=== PATIENT | male | born 1970 | race Caucasian/White ===

== ENCOUNTER 2017-01-26 11:17 | Inpatient (IN) | payer OTHER ==
[2017-01-26 14:53] VITALS: BMI 29.5
[2017-01-26] MEDS ORDERED: chlordiazePOXIDE HCL 25 MG CAPSULE PO PRN (17:18)
[2017-01-26] MEDS ORDERED: MAGNESIUM HYDROX 2400MG/30ML ORAL SUSPENSION 30 ML CUP PO PRN (17:18)
[2017-01-26] MEDS ORDERED: guaiFENesin/D-METHORPHAN HB 10 ML UNIT-DOSE CUPS PO PRN (17:18)
[2017-01-26] MEDS ORDERED: LOPERAMIDE HCL 2 MG CAPSULE PO PRN (17:18)
[2017-01-26] MEDS ORDERED: P-EPHED 60MG/TRIPROLIDI 2.5MG TABLET PO PRN (17:18)
[2017-01-26] MEDS ORDERED: MAGNESIUM CITRATE 300 ML BOTTLE PO PRN (17:18)
[2017-01-26] MEDS ORDERED: MENTHOL/PHENOL 1 EACH UD MM PRN (17:18)
[2017-01-26] MEDS ORDERED: MAG HYDROX/AL HYDROX/SIMETH 30 ML UNIT-DOSE CUP PO PRN (17:18)
--- NOTE | 2017-01-26 17:18 | HP ---
COWS - Scale Resting Pulse: 0= [place] 80 or Below Sweatin= Chills/Flushing Restless Observation: 1= Difficult to Sit Still Pupil Size: 0= Normal to Room Light Bone or Joint Aches: 2= Severe Diffuse Aches Runny Nose/ Eye Tearin= Runny Nose/Eyes GI Upset > 30mins: 2= Nausea/Diarrhea Tremor Observation: 2= Slight Tremor Visible Yawning Observation: 2= >3x During Session Anxiety or Irritability: 2=Irritable/Anxious Goose Flesh Skin: 0=Smooth Skin COWS Score: 14 CIWA Score - CIWA Score Nausea/Vomitin-Mild Nausea/No Vomiting Muscle Tremors: 4-Moderate,w/Arms Extend Anxiety: 4-Mod. Anxious/Guarded Agitation: 4-Moderately Restless Paroxysmal Sweats: 1-Minimal Palms Moist Orientation: 1-Uncertain about Date Tacttile Disturbances: 0-None Auditory Disturbances: 0-None Visual Disturbances: 0-None Headache: 0-None Present CIWA-Ar Total Score: 15 Admission ROS S - HPI Chief Complaint: withdrawal sx Allergies/Adverse Reactions: Allergies Allergy/AdvReac Type Severity Reaction Status Date / Time No Known Drug Allergies Allergy Verified 01/26/17 16:44 History of Present Illness: 46 years old male with long history of alcohol opiate cocaine nicotine dependence, denies medical issue has depression is admitted to detox Exam Limitations: No Limitations - Ebola screening Have you traveled outside of the country in the last 21 days: No Have you had contact with anyone from an Ebola affected area: No Have you been sick,other than usual withdrawal symptoms: No Do you have a fever: No - Review of Systems Constitutional: Chills, Changes in sleep, Weight Stable EENT: reports: No Symptoms Reported Respiratory: reports: No Symptoms reported Cardiac: reports: No Symptoms Reported GI: reports: Diarrhea, Nausea, Poor Fluid Intake, Indigestion, Abdominal cramping : reports: No Symptoms Reported Musculoskeletal: reports: Back Pain, Joint Pain, Muscle Pain, Neck Pain Integumentary: reports: Change in Color (both inner elbows) Neuro: reports: Tremors Endocrine: reports: No Symptoms Reported Hematology: reports: No Symptoms Reported Psychiatric: reports: Judgement Intact, Depressed Other Systems: Reviewed and Negative Patient History - Patient Medical History Hx Anemia: No Hx Asthma: No Hx Chronic Obstructive Pulmonary Disease (COPD): No Hx Cancer: No Hx Cardiac Disorders: No Hx Congestive Heart Failure: No Hx Hypertension: No Hx Hypercholesterolemia: No Hx Pacemaker: No HX Cerebrovascular Accident: No Hx Seizures: No Hx Dementia: No Hx Diabetes: No Hx Gastrointestinal Disorders: No Hx Liver Disease: No Hx Genitourinary Disorders: No Hx Sexually Transmitted Disorders: No Hx Renal Disease (ESRD): No Hx Thyroid Disease: No Hx Human Immunodeficiency Virus (HIV): No Hx Hepatitis C: No Hx Depression: Yes Hx Suicide Attempt: Yes (41 years old cut right wrist and over dose) Hx Bipolar Disorder: No Hx Schizophrenia: No - Patient Surgical History Past Surgical History: No Hx Neurologic Surgery: No Hx Cataract Extraction: No Hx Cardiac Surgery: No Hx Lung Surgery: No Hx Breast Surgery: No Hx Breast Biopsy: No Hx Abdominal Surgery: No Hx Appendectomy: No Hx Cholecystectomy: No Hx Genitourinary Surgery: No Hx Orthopedic Surgery: No - PPD History Previous Implant?: Yes Documented Results: Negative w/o proof Implanted On Prior R Admission?: No PPD to be Administered?: Yes - Smoking Cessation Smoking history: Current every day smoker Have you smoked in the past 12 months: Yes Aproximately how many cigarettes per day: 20 Cigars Per Day: 0 Hx Chewing Tobacco Use: No Initiated information on smoking cessation: Yes 'Breaking Loose' booklet given: 01/26/17 - Substance & Tx. History Hx Alcohol Use: Yes Hx Substance Use: Yes Substance Use Type: Alcohol, Cocaine, Opiates Hx Substance Use Treatment: Yes - Substances Abused Heroin Route: Injection Frequency: Daily Amount used: 15 bags Age of first use: 24 Date of Last Use: 01/26/17 Alcohol Route: Oral Frequency: Daily Amount used: Vodka 1 pint, Beer 1x6 pack Age of first use: 18 Date of Last Use: 01/25/17 Cocaine Route: Injection Frequency: Daily Amount used: $80 Age of first use: 18 Date of Last Use: 01/25/17 Family Disease History - Family Disease History Family Disease History: Diabetes: Brother, Heart Disease: Father, Mother Admission Physical Exam BHS - Vital Signs Vital Signs: Vital Signs - 24 hr 01/26/17 14:51 Temperature 96.1 F L Pulse Rate 72 Respiratory 20 Rate Blood Pressure 112/62 - Physical General Appearance: Yes: Nourished, Appropriately Dressed, Mild Distress, Tremorous, Irritable, Sweating, Anxious HEENTM: Yes: Hearing grossly Normal, Normal ENT Inspection, Normocephalic, Normal Voice Respiratory: Yes: Chest Non-Tender, Lungs Clear, Normal Breath Sounds, No Respiratory Distress, No Accessory Muscle Use Neck: Yes: Supple, Trachea in good position Breast: Yes: Breasts Symetrical Cardiology: Yes: Regular Rhythm, Regular Rate, S1, S2 Abdominal: Yes: Non Tender, Soft Genitourinary: Yes: Within Normal Limits Back: Yes: Normal Inspection Musculoskeletal: Yes: full range of Motion, Gait Steady, Back pain, Muscle Pain Extremities: Yes: Normal Range of Motion, Non-Tender, Tremors Neurological: Yes: Alert, Motor Strength 5/5, Normal Response, Depressed Affect Integumentary: Yes: Warm, Track Kate Lymphatic: Yes: Within Normal Limits - Diagnostic (1) Alcohol dependence with uncomplicated withdrawal Current Visit: Yes Status: Acute (2) Opioid dependence with withdrawal Current Visit: Yes Status: Acute (3) Cocaine abuse, uncomplicated Current Visit: Yes Status: Chronic (4) Nicotine dependence Current Visit: Yes Status: Acute Qualifiers: Nicotine product type: cigarettes Substance use status: in withdrawal Qualified Code(s): F17.213 - Nicotine dependence, cigarettes, with withdrawal (5) GERD (gastroesophageal reflux disease) Current Visit: Yes Status: Chronic Qualifiers: Esophagitis presence: without esophagitis Qualified Code(s): K21.9 - Gastro-esophageal reflux disease without esophagitis (6) Depression (emotion) Current Visit: Yes Status: Suspected Qualifiers: Depression Type: dysthymia Qualified Code(s): F34.1 - Dysthymic disorder Cleared for Admission [facility] - Detox or Rehab [facility] Level of Care: Medically Managed Detox Regimen/Protocol: Methadone/Librium [facility] Breath Alcohol Content Breath Alcohol Content: 0 Urine Drug Screen - Results Drug Screen Negative: No Urine Drug Screen Results: ALECIA-Cocaine, OPI-Opiates
[2017-01-26] MEDS ORDERED: METHADONE HCL 10 MG TABLET (FOR DETOX USE ONLY) PO ONE ×2 (18:00→23:00)
[2017-01-26 21:39] LABS: URINE APPEARANCE SLCLOUDY; URINE BILIRUBIN NEGATIVE (NEGATIVE); URINE BLOOD NEGATIVE (NEGATIVE); URINE COLOR LTYELLOW; URINE GLUCOSE (UA) NEGATIVE (NEGATIVE); URINE KETONE NEGATIVE (NEGATIVE); URINE LEUK ESTERASE NEGATIVE (NEGATIVE); URINE NITRITE NEGATIVE (NEGATIVE); URINE PROTEIN NEGATIVE (NEGATIVE); URINE UROBILINOGEN NEGATIVE E.U./dl (0.2-1.0)
[2017-01-26] MEDS: THIAMINE HCL 100 MG TABLET (FP) PO SCH (22:10)
[2017-01-26] MEDS: chlordiazePOXIDE HCL 25 MG CAPSULE PO SCH (22:10)
[2017-01-26] MEDS: RANITIDINE HCL 150 MG TABLET (FP) PO SCH (22:11)
[2017-01-27] MEDS: chlordiazePOXIDE HCL 25 MG CAPSULE PO SCH ×4 (05:28→22:20)
--- NOTE | 2017-01-27 09:36 | CONSULT ---
[facility] Psychiatric Consult - Data Date of interview: 01/27/17 Admission source: [facility] Identifying data: This is 46 years old male with no psyuchiatric hospitalization history intoxicated with: Opioids, Cocaine, Alcohol and Nicotine Substance Abuse History: - Smoking Cessation. Smoking history: Current every day smoker. Have you smoked in the past 12 months: Yes. Aproximately how many cigarettes per day: 20. Cigars Per Day: 0. Hx Chewing Tobacco Use: No. Initiated information on smoking cessation: Yes. 'Breaking Loose' booklet given : 01/26/17. - Substance & Tx. History. Hx Alcohol Use: Yes. Hx Substance Use : Yes. Substance Use Type: Alcohol, Cocaine, Opiates. Hx Substance Use Treatment: Yes. - Substances Abused. Heroin. Route: Injection. Frequency : Daily. Amount used: 15 bags. Age of first use: 24. Date of Last Use: . Alcohol. Route: Oral. Frequency: Daily. Amount used: Vodka 1 pint, Beer 1x6 pack. Age of first use: 18. Date of Last Use: 01/25/17. Cocaine. Route: Injection. Frequency: Daily. Amount used: $80. Age of first use: 18. Date of Last Use: 01/25/17 Medical History: GERD Psychiatric History: Patient reports history of Depression, reports taking prior to admission with good response: Trazodone 50po qhs. Seroquel 100mg po qhs. Celexa 20mg poqd Physical/Sexual Abuse/Trauma History: Denies Additional Comment: Trazodone 50po qhs. Seroquel 100mg po qhs. Celexa 20mg poqd Mental Status Exam - Mental Status Exam Alert and Oriented to: Person Cognitive Function: Fair Patient Appearance: Unkempt Mood: Sad Affect: Mood Congruent Patient Behavior: Cooperative Speech Pattern: Appropriate Voice Loudness: Normal Thought Process: Goal Oriented Thought Disorder: Being Controlled Hallucinations: Denies Suicidal Ideation: Denies Homicidal Ideation: Denies Insight/Judgement: Fair Sleep: Difficulty falling asleep Appetite: Fair Muscle strength/Tone: Normal Gait/Station: Shuffling Additional Comments: Trazodone 50po qhs. Seroquel 100mg po qhs. Celexa 20mg poqd Psychiatric Findings - Problem List ([place] 1, 2,3) (1) Alcohol dependence with uncomplicated withdrawal Current Visit: Yes Status: Acute (2) Nicotine dependence Current Visit: Yes Status: Acute Qualifiers: Nicotine product type: cigarettes Substance use status: in withdrawal Qualified Code(s): F17.213 - Nicotine dependence, cigarettes, with withdrawal (3) Opioid dependence with withdrawal Current Visit: Yes Status: Acute (4) Cocaine abuse, uncomplicated Current Visit: Yes Status: Chronic (5) Drug-induced mood disorder Current Visit: Yes Status: Acute - Initial Treatment Plan Initial Treatment Plan: Trazodone 50po qhs. Seroquel 100mg po qhs. Celexa 20mg poqd
[2017-01-27] MEDS ORDERED: METHADONE HCL 10 MG TABLET (FOR DETOX USE ONLY) PO SCH (10:00)
[2017-01-27] MEDS: RANITIDINE HCL 150 MG TABLET (FP) PO SCH ×2 (10:04→22:20)
[2017-01-27] MEDS: NICOTINE 21 MG/24 HOURS TOPICAL PATCH TD SCH (10:04)
[2017-01-27] MEDS: PRENATAL VITAMINS W/ FOLIC ACID TABLET (FP) PO SCH (10:04)
[2017-01-27] MEDS: CITALOPRAM HYDROBROMIDE 20 MG TABLET (FP) PO SCH (10:04)
[2017-01-27 10:15] LABS: MCH 29.6 pg (25.7-33.7); MCHC 33.1 g/dl (32.0-35.9); MEAN CELL VOLUME 89.5 fl (80-96); MEAN PLT VOLUME 10.2 fl (7.5-11.1); PLATELET COUNT 245 K/MM3 (134-434); RDW 13.9 % (11.9-15.9); WHITE BLOOD COUNT 7.3 K/mm3 (4.0-10.0)
[2017-01-27 10:47] LABS: ALBUMIN 3.6 g/dl (3.4-5.0); ALK PHOS 121 U/L (45-117); ANION GAP 9 (8-16); BILIRUBIN,TOTAL 0.8 mg/dL (0.2-1.0); CALCIUM 9.3 mg/dL (8.5-10.1); CO2 28 mmol/L (21-32); COCKROFT - GAULT 118.43; GLUCOSE,RANDOM 99 mg/dL (74-106); SGOT/AST 23 U/L (15-37); SGPT/ALT 27 U/L (12-78); TOT PROT 7.3 g/dl (6.4-8.2)
[2017-01-27 11:15] LABS: HIV 1 & 2 AB NEGATIVE; HIV 1 AGp24 NEGATIVE
--- NOTE | 2017-01-27 11:52 | PN ---
S CIWA - CIWA Score Nausea/Vomitin-Mild Nausea/No Vomiting Muscle Tremors: 4-Moderate,w/Arms Extend Anxiety: 4-Mod. Anxious/Guarded Agitation: 3 Paroxysmal Sweats: 3 Orientation: 0-Oriented Tacttile Disturbances: 0-None Auditory Disturbances: 0-None Visual Disturbances: 0-None Headache: 0-None Present CIWA-Ar Total Score: 15 BHS COWS - Scale Resting Pulse: 0= [place] 80 or Below Sweatin=Flushed/Facial Moisture Restless Observation: 1= Difficult to Sit Still Pupil Size: 0= Normal to Room Light Bone or Joint Aches: 2= Severe Diffuse Aches Runny Nose/ Eye Tearin= Runny Nose/Eyes GI Upset > 30mins: 2= Nausea/Diarrhea Tremor Observation of Outstretched Hands: 2= Slight Tremor Visible Yawning Observation: 1= 1-2x During Session Anxiety or Irritability: 2=Irritable/Anxious Goose Flesh Skin: 0=Smooth Skin COWS Score: 14 S Progress Note (SOAP) Subjective: Anxiety,tremors,sweating,interrupted sleep,restless,muscle aches Objective: 01/27/17 11:51 Vital Signs - 8 hr 01/27/17 01/27/17 06:32 09:14 Temperature 96.2 F L 96.9 F L Pulse Rate 56 L 63 Respiratory 16 18 Rate Blood Pressure 114/79 117/72 Laboratory Tests 01/26/17 01/27/17 01/27/17 21:20 06:00 06:00 WBC 7.3 RBC 4.62 Hgb 13.7 Hct 41.4 MCV 89.5 MCHC 33.1 RDW 13.9 Plt Count 245 MPV 10.2 Sodium Potassium Chloride Carbon Dioxide Anion Gap BUN Creatinine Creat Clearance w eGFR Random Glucose Calcium Total Bilirubin AST ALT Alkaline Phosphatase Total Protein Albumin Urine Color Ltyellow Urine Appearance Slcloudy Urine pH 7.0 Ur Specific [place] 1.019 Urine Protein Negative Urine Glucose (UA) Negative Urine Ketones Negative Urine Blood Negative Urine Nitrite Negative Urine Bilirubin Negative Urine Urobilinogen Negative Ur Leukocyte Esterase Negative RPR Titer HIV 1&2 Antibody Screen Negative HIV P24 Antigen Negative 01/27/17 01/27/17 06:00 06:00 WBC RBC Hgb Hct MCV MCHC RDW Plt Count MPV Sodium 143 Potassium 4.6 Chloride 106 Carbon Dioxide 28 Anion Gap 9 BUN 22 H Creatinine 1.0 Creat Clearance w eGFR > 60 Random Glucose 99 Calcium 9.3 Total Bilirubin 0.8 AST 23 ALT 27 Alkaline Phosphatase 121 H Total Protein 7.3 Albumin 3.6 Urine Color Urine Appearance Urine pH Ur Specific [place] Urine Protein Urine Glucose (UA) Urine Ketones Urine Blood Urine Nitrite Urine Bilirubin Urine Urobilinogen Ur Leukocyte Esterase RPR Titer Nonreactive HIV 1&2 Antibody Screen HIV P24 Antigen labs noted Assessment: 01/27/17 11:51 withdrawal sx. Plan: Continue detox
[2017-01-27] MEDS ORDERED: PNEUMOCOCCAL 23 VACCINE 0.5 ML VIAL IM ONE (12:00)
[2017-01-27] MEDS ORDERED: PNEUMOC 13-VAL CONJ-DIP CRM/PF 0.5 ML DISP.SYRIN IM ONE (12:00)
--- NOTE | 2017-01-27 13:36 | EKG ---
Test Reason : Blood Pressure : / mmHG Vent. Rate : 057 BPM Atrial Rate : 057 BPM P-R Int : 166 ms QRS Dur : 114 ms QT Int : 454 ms P-R-T Axes : 020 002 027 degrees QTc Int : 441 ms SINUS BRADYCARDIA OTHERWISE NORMAL ECG NO PREVIOUS ECGS AVAILABLE Confirmed by MELY AGUAYO, DALE ([id number]) on 01/27/2017 1:35:51 PM Referred By: Dandre Llamas Confirmed By:DALE BOONE MD
[2017-01-27] MEDS: ACETAMINOPHEN 325 MG TABLET (FP) PO PRN ×2 (18:30→23:32)
[2017-01-27] MEDS: THIAMINE HCL 100 MG TABLET (FP) PO SCH (22:20)
[2017-01-27] MEDS: traZODone HCL 50 MG TABLET (FP) PO SCH (22:20)
[2017-01-27] MEDS: QUEtiapine FUMARATE 100 MG TABLET (FP) PO SCH (22:20)
[2017-01-28] MEDS: CYCLOBENZAPRINE HCL 10 MG TABLET (FP) PO PRN ×2 (00:59→10:22)
[2017-01-28] MEDS: diphenhydrAMINE HCL 50 MG CAPSULE PO PRN (01:00)
[2017-01-28] MEDS: ACETAMINOPHEN 325 MG TABLET (FP) PO PRN (03:59)
[2017-01-28] MEDS: chlordiazePOXIDE HCL 25 MG CAPSULE PO SCH ×3 (05:29→17:10)
[2017-01-28] MEDS: CITALOPRAM HYDROBROMIDE 20 MG TABLET (FP) PO SCH (10:20)
[2017-01-28] MEDS: PRENATAL VITAMINS W/ FOLIC ACID TABLET (FP) PO SCH (10:20)
[2017-01-28] MEDS: NICOTINE 21 MG/24 HOURS TOPICAL PATCH TD SCH (10:20)
[2017-01-28] MEDS: RANITIDINE HCL 150 MG TABLET (FP) PO SCH ×2 (10:20→22:19)
[2017-01-28] MEDS: METHADONE HCL 5 MG TABLET (FOR DETOX USE ONLY) PO SCH (10:20)
--- NOTE | 2017-01-28 10:28 | PN ---
[facility] CIWA - CIWA Score Nausea/Vomitin-No Nausea/No Vomiting Muscle Tremors: 4-Moderate,w/Arms Extend Anxiety: 4-Mod. Anxious/Guarded Agitation: 4-Moderately Restless Paroxysmal Sweats: 1-Minimal Palms Moist Orientation: 0-Oriented Tacttile Disturbances: 3-Moderate Itch/Numb/Burn Auditory Disturbances: 0-None Visual Disturbances: 0-None Headache: 0-None Present CIWA-Ar Total Score: 16 S COWS - Scale Resting Pulse: 0= [place] 80 or Below Sweatin= Chills/Flushing Restless Observation: 3= Extraneous Movement Pupil Size: 2= Moderately Dilated Bone or Joint Aches: 4=Acute Joint/Muscle Pain Runny Nose/ Eye Tearin= Nasal Congestion GI Upset > 30mins: 1= Stomach Cramp Tremor Observation of Outstretched Hands: 2= Slight Tremor Visible Yawning Observation: 1= 1-2x During Session Anxiety or Irritability: 2=Irritable/Anxious Goose Flesh Skin: 0=Smooth Skin COWS Score: 17 S Progress Note (SOAP) Subjective: ANXIETY,SWEATS,BODYACHES, INTERMITTENT SLEEP. Objective: 01/28/17 10:27 Vital Signs Temperature 97.0 F L 01/28/17 09:16 Pulse Rate 65 01/28/17 09:16 Respiratory Rate 18 01/28/17 09:16 Blood Pressure 113/71 01/28/17 09:16 O2 Sat by Pulse Oximetry (%) Laboratory Last Values WBC 7.3 K/mm3 (4.0-10.0) 01/27/17 06:00 RBC 4.62 M/mm3 (4.00-5.60) 01/27/17 06:00 Hgb 13.7 GM/dL (11.7-16.9) 01/27/17 06:00 Hct 41.4 % (35.4-49) 01/27/17 06:00 MCV 89.5 fl (80-96) 01/27/17 06:00 MCHC 33.1 g/dl (32.0-35.9) 01/27/17 06:00 RDW 13.9 % (11.9-15.9) 01/27/17 06:00 Plt Count 245 K/MM3 (134-434) 01/27/17 06:00 MPV 10.2 fl (7.5-11.1) 01/27/17 06:00 Sodium 143 mmol/L (136-145) 01/27/17 06:00 Potassium 4.6 mmol/L (3.5-5.1) 01/27/17 06:00 Chloride 106 mmol/L (98-107) 01/27/17 06:00 Carbon Dioxide 28 mmol/L (21-32) 01/27/17 06:00 Anion Gap 9 (8-16) 01/27/17 06:00 BUN 22 mg/dL (7-18) H 01/27/17 06:00 Creatinine 1.0 mg/dL (0.7-1.3) 01/27/17 06:00 Creat Clearance w eGFR > 60 (>60) 01/27/17 06:00 Random Glucose 99 mg/dL (74-106) 01/27/17 06:00 Calcium 9.3 mg/dL (8.5-10.1) 01/27/17 06:00 Total Bilirubin 0.8 mg/dL (0.2-1.0) 01/27/17 06:00 AST 23 U/L (15-37) 01/27/17 06:00 ALT 27 U/L (12-78) 01/27/17 06:00 Alkaline Phosphatase 121 U/L (45-117) H 01/27/17 06:00 Total Protein 7.3 g/dl (6.4-8.2) 01/27/17 06:00 Albumin 3.6 g/dl (3.4-5.0) 01/27/17 06:00 Urine Color Ltyellow 01/26/17 21:20 Urine Appearance Slcloudy 01/26/17 21:20 Urine pH 7.0 (5.0-8.0) 01/26/17 21:20 Ur Specific [place] 1.019 (1.001-1.035) 01/26/17 21:20 Urine Protein Negative (NEGATIVE) 01/26/17 21:20 Urine Glucose (UA) Negative (NEGATIVE) 01/26/17 21:20 Urine Ketones Negative (NEGATIVE) 01/26/17 21:20 Urine Blood Negative (NEGATIVE) 01/26/17 21:20 Urine Nitrite Negative (NEGATIVE) 01/26/17 21:20 Urine Bilirubin Negative (NEGATIVE) 01/26/17 21:20 Urine Urobilinogen Negative E.U./dl (0.2-1.0) 01/26/17 21:20 Ur Leukocyte Esterase Negative (NEGATIVE) 01/26/17 21:20 RPR Titer Nonreactive (NONREACTIVE) 01/27/17 06:00 HIV 1&2 Antibody Screen Negative 01/27/17 06:00 HIV P24 Antigen Negative 01/27/17 06:00 Assessment: 01/28/17 10:27 WITHDRAWAL SX Plan: CONTINUE DETOX
[2017-01-28] MEDS: CYCLOBENZAPRINE HCL 10 MG TABLET (FP) PO SCH ×2 (14:33→22:19)
[2017-01-28] MEDS: chlordiazePOXIDE 5 MG CAPSULE PO SCH (22:18)
[2017-01-28] MEDS: THIAMINE HCL 100 MG TABLET (FP) PO SCH (22:18)
[2017-01-28] MEDS: traZODone HCL 50 MG TABLET (FP) PO SCH (22:19)
[2017-01-28] MEDS: QUEtiapine FUMARATE 100 MG TABLET (FP) PO SCH (22:19)
[2017-01-29] MEDS: CYCLOBENZAPRINE HCL 10 MG TABLET (FP) PO SCH ×3 (05:56→22:11)
[2017-01-29] MEDS: chlordiazePOXIDE 5 MG CAPSULE PO SCH ×3 (05:56→17:16)
[2017-01-29] MEDS: NICOTINE POLACRILEX 4 MG GUM BC PRN ×2 (09:29→20:37)
[2017-01-29] MEDS: CITALOPRAM HYDROBROMIDE 20 MG TABLET (FP) PO SCH (10:10)
[2017-01-29] MEDS: PRENATAL VITAMINS W/ FOLIC ACID TABLET (FP) PO SCH (10:10)
[2017-01-29] MEDS: METHADONE HCL 5 MG TABLET (FOR DETOX USE ONLY) PO SCH (10:10)
[2017-01-29] MEDS: RANITIDINE HCL 150 MG TABLET (FP) PO SCH ×2 (10:10→22:11)
[2017-01-29] MEDS: NICOTINE 21 MG/24 HOURS TOPICAL PATCH TD SCH (10:11)
--- NOTE | 2017-01-29 13:31 | PN ---
S Progress Note (SOAP) Subjective: Tremors, Sweating, Interrupted Sleep, Body aches. Objective: PT. A & O X 3, OBSERVED AMBULATING ON UNIT. 01/29/17 13:29 Vital Signs Temperature 95.6 F L 01/29/17 09:48 Pulse Rate 67 01/29/17 09:48 Respiratory Rate 18 01/29/17 09:48 Blood Pressure 112/66 01/29/17 09:48 O2 Sat by Pulse Oximetry (%) Laboratory Last Values WBC 7.3 K/mm3 (4.0-10.0) 01/27/17 06:00 RBC 4.62 M/mm3 (4.00-5.60) 01/27/17 06:00 Hgb 13.7 GM/dL (11.7-16.9) 01/27/17 06:00 Hct 41.4 % (35.4-49) 01/27/17 06:00 MCV 89.5 fl (80-96) 01/27/17 06:00 MCHC 33.1 g/dl (32.0-35.9) 01/27/17 06:00 RDW 13.9 % (11.9-15.9) 01/27/17 06:00 Plt Count 245 K/MM3 (134-434) 01/27/17 06:00 MPV 10.2 fl (7.5-11.1) 01/27/17 06:00 Sodium 143 mmol/L (136-145) 01/27/17 06:00 Potassium 4.6 mmol/L (3.5-5.1) 01/27/17 06:00 Chloride 106 mmol/L (98-107) 01/27/17 06:00 Carbon Dioxide 28 mmol/L (21-32) 01/27/17 06:00 Anion Gap 9 (8-16) 01/27/17 06:00 BUN 22 mg/dL (7-18) H 01/27/17 06:00 Creatinine 1.0 mg/dL (0.7-1.3) 01/27/17 06:00 Creat Clearance w eGFR > 60 (>60) 01/27/17 06:00 Random Glucose 99 mg/dL (74-106) 01/27/17 06:00 Calcium 9.3 mg/dL (8.5-10.1) 01/27/17 06:00 Total Bilirubin 0.8 mg/dL (0.2-1.0) 01/27/17 06:00 AST 23 U/L (15-37) 01/27/17 06:00 ALT 27 U/L (12-78) 01/27/17 06:00 Alkaline Phosphatase 121 U/L (45-117) H 01/27/17 06:00 Total Protein 7.3 g/dl (6.4-8.2) 01/27/17 06:00 Albumin 3.6 g/dl (3.4-5.0) 01/27/17 06:00 Urine Color Ltyellow 01/26/17 21:20 Urine Appearance Slcloudy 01/26/17 21:20 Urine pH 7.0 (5.0-8.0) 01/26/17 21:20 Ur Specific [place] 1.019 (1.001-1.035) 01/26/17 21:20 Urine Protein Negative (NEGATIVE) 01/26/17 21:20 Urine Glucose (UA) Negative (NEGATIVE) 01/26/17 21:20 Urine Ketones Negative (NEGATIVE) 01/26/17 21:20 Urine Blood Negative (NEGATIVE) 01/26/17 21:20 Urine Nitrite Negative (NEGATIVE) 01/26/17 21:20 Urine Bilirubin Negative (NEGATIVE) 01/26/17 21:20 Urine Urobilinogen Negative E.U./dl (0.2-1.0) 01/26/17 21:20 Ur Leukocyte Esterase Negative (NEGATIVE) 01/26/17 21:20 RPR Titer Nonreactive (NONREACTIVE) 01/27/17 06:00 HIV 1&2 Antibody Screen Negative 01/27/17 06:00 HIV P24 Antigen Negative 01/27/17 06:00 LABS NOTED. Assessment: 01/29/17 13:30 WITHDRAWAL SYMPTOMS. Plan: CONTINUE DETOX. ADVISED PATIENT TO FOLLOW-UP WITH PASSENGER BARGE [facility]STER / REHAB MEDICAL PROVIDER AFTER DISCHARGE FROM DETOX FOR GENERAL MEDICAL ASSESSMENT AND FOR ABNORMAL ADMISSION LAB VALUES.
[2017-01-29] MEDS: traZODone HCL 50 MG TABLET (FP) PO SCH (22:11)
[2017-01-29] MEDS: THIAMINE HCL 100 MG TABLET (FP) PO SCH (22:11)
[2017-01-29] MEDS: QUEtiapine FUMARATE 100 MG TABLET (FP) PO SCH (22:11)
[2017-01-29] MEDS: chlordiazePOXIDE HCL 10 MG CAPSULE PO SCH (22:11)
[2017-01-30] MEDS: diphenhydrAMINE HCL 50 MG CAPSULE PO PRN ×2 (00:48→22:32)
[2017-01-30] MEDS: ACETAMINOPHEN 325 MG TABLET (FP) PO PRN ×2 (00:48→14:50)
[2017-01-30] MEDS: chlordiazePOXIDE HCL 10 MG CAPSULE PO SCH ×3 (05:46→17:15)
[2017-01-30] MEDS: CYCLOBENZAPRINE HCL 10 MG TABLET (FP) PO SCH ×3 (05:46→22:30)
[2017-01-30] MEDS ORDERED: METHADONE HCL 10 MG TABLET (FOR DETOX USE ONLY) PO SCH (10:00)
[2017-01-30] MEDS: NICOTINE 21 MG/24 HOURS TOPICAL PATCH TD SCH (10:13)
[2017-01-30] MEDS: CITALOPRAM HYDROBROMIDE 20 MG TABLET (FP) PO SCH (10:13)
[2017-01-30] MEDS: RANITIDINE HCL 150 MG TABLET (FP) PO SCH ×2 (10:13→22:30)
[2017-01-30] MEDS: PRENATAL VITAMINS W/ FOLIC ACID TABLET (FP) PO SCH (10:13)
[2017-01-30] MEDS ORDERED: BISACODYL 5 MG TABLET.DR (FP) PO ONE (12:46)
--- NOTE | 2017-01-30 12:50 | PN ---
[facility] Progress Note (SOAP) Subjective: Sweating, anxious, interrupted sleep, constipation (hard stool yesterday, no bm today) Objective: 01/30/17 12:48 Last Vital Signs Temp Pulse Resp BP Pulse Ox 95.9 F L 73 18 111/67 01/30/17 09:46 01/30/17 09:46 01/30/17 09:46 01/30/17 09:46 Laboratory Tests 01/26/17 01/27/17 01/27/17 21:20 06:00 06:00 WBC 7.3 RBC 4.62 Hgb 13.7 Hct 41.4 MCV 89.5 MCHC 33.1 RDW 13.9 Plt Count 245 MPV 10.2 Sodium Potassium Chloride Carbon Dioxide Anion Gap BUN Creatinine Creat Clearance w eGFR Random Glucose Calcium Total Bilirubin AST ALT Alkaline Phosphatase Total Protein Albumin Urine Color Ltyellow Urine Appearance Slcloudy Urine pH 7.0 Ur Specific [place] 1.019 Urine Protein Negative Urine Glucose (UA) Negative Urine Ketones Negative Urine Blood Negative Urine Nitrite Negative Urine Bilirubin Negative Urine Urobilinogen Negative Ur Leukocyte Esterase Negative RPR Titer HIV 1&2 Antibody Screen Negative HIV P24 Antigen Negative 01/27/17 01/27/17 06:00 06:00 WBC RBC Hgb Hct MCV MCHC RDW Plt Count MPV Sodium 143 Potassium 4.6 Chloride 106 Carbon Dioxide 28 Anion Gap 9 BUN 22 H Creatinine 1.0 Creat Clearance w eGFR > 60 Random Glucose 99 Calcium 9.3 Total Bilirubin 0.8 AST 23 ALT 27 Alkaline Phosphatase 121 H Total Protein 7.3 Albumin 3.6 Urine Color Urine Appearance Urine pH Ur Specific [place] Urine Protein Urine Glucose (UA) Urine Ketones Urine Blood Urine Nitrite Urine Bilirubin Urine Urobilinogen Ur Leukocyte Esterase RPR Titer Nonreactive HIV 1&2 Antibody Screen HIV P24 Antigen Labs noted Assessment: 01/30/17 12:48 Withdrawal symptoms Plan: Continue detox, encouraged to drink lots of water, dulcolax 10mg PO x 1 dose for constipation
[2017-01-30] MEDS ORDERED: BISACODYL 10 MG SUPP.RECT RC ONE (16:06)
[2017-01-30] MEDS: QUEtiapine FUMARATE 100 MG TABLET (FP) PO SCH (22:30)
[2017-01-30] MEDS: traZODone HCL 50 MG TABLET (FP) PO SCH (22:30)
[2017-01-30] MEDS: THIAMINE HCL 100 MG TABLET (FP) PO SCH (22:30)
[2017-01-31] MEDS: CYCLOBENZAPRINE HCL 10 MG TABLET (FP) PO SCH (05:48)
[2017-01-31] MEDS ORDERED: METHADONE HCL 5 MG TABLET (FOR DETOX USE ONLY) PO SCH (06:00)
[2017-01-31 09:09] VITALS: BP 121/69; PULSE 74; TEMP 95.2
--- NOTE | 2017-01-31 11:15 | DS ---
[facility] Detox Discharge Summary Admission Date: 01/26/17 Discharge Date: 01/31/17 - History Present History: Alcohol Dependence, Cocaine Dependence, Opioid Dependence Pertinent Past History: GERD - Physical Exam Results Vital Signs: Vital Signs Temperature 95.2 F L 01/31/17 09:08 Pulse Rate 74 01/31/17 09:08 Respiratory Rate 20 01/31/17 09:08 Blood Pressure 121/69 01/31/17 09:08 O2 Sat by Pulse Oximetry (%) Pertinent Admission Physical Exam Findings: Withdrawal sx. Laboratory Last Values WBC 7.3 K/mm3 (4.0-10.0) 01/27/17 06:00 RBC 4.62 M/mm3 (4.00-5.60) 01/27/17 06:00 Hgb 13.7 GM/dL (11.7-16.9) 01/27/17 06:00 Hct 41.4 % (35.4-49) 01/27/17 06:00 MCV 89.5 fl (80-96) 01/27/17 06:00 MCHC 33.1 g/dl (32.0-35.9) 01/27/17 06:00 RDW 13.9 % (11.9-15.9) 01/27/17 06:00 Plt Count 245 K/MM3 (134-434) 01/27/17 06:00 MPV 10.2 fl (7.5-11.1) 01/27/17 06:00 Sodium 143 mmol/L (136-145) 01/27/17 06:00 Potassium 4.6 mmol/L (3.5-5.1) 01/27/17 06:00 Chloride 106 mmol/L (98-107) 01/27/17 06:00 Carbon Dioxide 28 mmol/L (21-32) 01/27/17 06:00 Anion Gap 9 (8-16) 01/27/17 06:00 BUN 22 mg/dL (7-18) H 01/27/17 06:00 Creatinine 1.0 mg/dL (0.7-1.3) 01/27/17 06:00 Creat Clearance w eGFR > 60 (>60) 01/27/17 06:00 Random Glucose 99 mg/dL (74-106) 01/27/17 06:00 Calcium 9.3 mg/dL (8.5-10.1) 01/27/17 06:00 Total Bilirubin 0.8 mg/dL (0.2-1.0) 01/27/17 06:00 AST 23 U/L (15-37) 01/27/17 06:00 ALT 27 U/L (12-78) 01/27/17 06:00 Alkaline Phosphatase 121 U/L (45-117) H 01/27/17 06:00 Total Protein 7.3 g/dl (6.4-8.2) 01/27/17 06:00 Albumin 3.6 g/dl (3.4-5.0) 01/27/17 06:00 Urine Color Ltyellow 01/26/17 21:20 Urine Appearance Slcloudy 01/26/17 21:20 Urine pH 7.0 (5.0-8.0) 01/26/17 21:20 Ur Specific [place] 1.019 (1.001-1.035) 01/26/17 21:20 Urine Protein Negative (NEGATIVE) 01/26/17 21:20 Urine Glucose (UA) Negative (NEGATIVE) 01/26/17 21:20 Urine Ketones Negative (NEGATIVE) 01/26/17 21:20 Urine Blood Negative (NEGATIVE) 01/26/17 21:20 Urine Nitrite Negative (NEGATIVE) 01/26/17 21:20 Urine Bilirubin Negative (NEGATIVE) 01/26/17 21:20 Urine Urobilinogen Negative E.U./dl (0.2-1.0) 01/26/17 21:20 Ur Leukocyte Esterase Negative (NEGATIVE) 01/26/17 21:20 RPR Titer Nonreactive (NONREACTIVE) 01/27/17 06:00 HIV 1&2 Antibody Screen Negative 01/27/17 06:00 HIV P24 Antigen Negative 01/27/17 06:00 labs noted - Treatment Hospital Course: Detox Protocol Followed, Detoxed Safely, Responded well, Discharged Condition Good, Rehab Referral Accepted Patient has Accepted a Rehab Referral to: IOP - Medication Discharge Medications: Ambulatory Orders Citalopram Hydrobromide [Celexa -] 20 mg PO DAILY 01/26/17 Quetiapine Fumarate [Seroquel -] 100 mg PO HS 01/26/17 Trazodone HCl 50 mg PO HS 01/26/17 Citalopram Hydrobromide [Celexa -] 20 mg PO DAILY #30 tablet 01/27/17 Quetiapine Fumarate [Seroquel] 100 mg PO HS #30 tablet 01/27/17 Trazodone HCl [Desyrel -] 50 mg PO HS #30 tablet 01/27/17 - Diagnosis (1) Alcohol dependence with uncomplicated withdrawal Current Visit: Yes Status: Acute (2) Drug-induced mood disorder Current Visit: Yes Status: Acute (3) Nicotine dependence Current Visit: Yes Status: Acute Qualifiers: Nicotine product type: cigarettes Substance use status: in withdrawal Qualified Code(s): F17.213 - Nicotine dependence, cigarettes, with withdrawal (4) Opioid dependence with withdrawal Current Visit: Yes Status: Acute (5) Cocaine abuse, uncomplicated Current Visit: Yes Status: Chronic (6) GERD (gastroesophageal reflux disease) Current Visit: Yes Status: Chronic Qualifiers: Esophagitis presence: without esophagitis Qualified Code(s): K21.9 - Gastro-esophageal reflux disease without esophagitis - AMA Did Patient Leave Against Medical Advice: No
== END 2017-01-31 09:50 | disposition home or self-care (01) | DRG 773 ==
LOC: YASAS 11:17 → Y3N 17:34
PROVIDERS: ADMIT Internal Medicine; ATTEND Internal Medicine
PROC: HZ2ZZZZ Detoxification Services for Substance Abuse Treatment (ICD-10-PCS; principal; 2017-01-31)
DX: F11.23 Opioid dependence with withdrawal (principal); F10.230 Alcohol dependence with withdrawal, uncomplicated; F17.213 Nicotine dependence, cigarettes, with withdrawal; F14.10 Cocaine abuse, uncomplicated; F19.24 Other psychoactive substance dependence with psychoactive substance-induced mood disorder; F34.1 Dysthymic disorder; K21.9 Gastro-esophageal reflux disease without esophagitis
CPT/HCPCS: 36415; 80053; 81003; 85027; 86593; 87389; 90732; 93005; 93010; G0009

== ENCOUNTER 2018-12-29 10:33 | Inpatient (IN) | payer OTHER ==
[2018-12-29 11:41] VITALS: BMI 26.2
--- NOTE | 2018-12-29 11:45 | HP ---
COWS - Scale Resting Pulse: 0= MD 80 or Below Sweatin= No chills or Flushing Restless Observation: 3= Extraneous Movement Pupil Size: 0= Normal to Room Light Bone or Joint Aches: 0= None Runny Nose/ Eye Tearin= None GI Upset > 30mins: 0= None Tremor Observation: 0= None Yawning Observation: 0= None Anxiety or Irritability: 1=Feels Anxious/Irritable Goose Flesh Skin: 0=Smooth Skin COWS Score: 4 CIWA Score - Admission Criteria OASAS Guidelines: Admission for Medically Managed Detox: Requires at least one of the followin. CIWA greater than 12 2. Seizures within the past 24 hours 3. Delirium tremens within the past 24 hours 4. Hallucinations within the past 24 hours 5. Acute intervention needed for co occurring medical disorder 6. Acute intervention needed for co occurring psychiatric disorder 7. Severe withdrawal that cannot be handled at a lower level of care (continued vomiting, continued diarrhea, abnormal vital signs) requiring intravenous medication and/or fluids 8. Admission ROS [facility] Allergies/Adverse Reactions: Allergies Allergy/AdvReac Type Severity Reaction Status Date / Time No Known Drug Allergies Allergy Verified 01/26/17 16:44 History of Present Illness: Search Terms: thomas villatoro, 1970 Search Date: 12/29/2018 11:37:40 AM The Drug Utilization Report below displays all of the controlled substance prescriptions, if any, that your patient has filled in the last twelve months. The information displayed on this report is compiled from pharmacy submissions to the Department, and accurately reflects the information as submitted by the pharmacies. This report was requested by: Sonia Cho | Reference #: [id number] There are no results for the search terms that you entered pt here requesting detox from heroin use , reports 1 .5 bundles/day since age 27 IVDU in [facility] , hands , needles from the store , denies sharing , + re-using , denies abscess , + blackouts w/ use , most recently yesterday denies narcan ever , + hospitalized [facility] some months ago for sepsis " an infection in my blood " , completed course of antibiotics . Latest heroin use yesterday around late evening , current symptoms as above , reports " I did a lot of heroin last night , I am alright now , it will be a while before I get sick , I used fentanyl " , was at [facility] walked in tried to go to psych loomis , came directly from the hospital , has d/c paperwork cannabis : daily 1 joint cocaine : 1 gr IVDU fentanyl - 1.5 gr/day etoh : " a can of beer here and there " tobacco : 1 ppd PMHX : hep C dx 2 years ago no tx PSHX : denies PSych : depression , + past si " I overdosed on purpose " SHX : lives w/ mother and aunt, unemployed , finances habit through " odd jobs " , currently court pending , 1 drug- related charges . 2 children ages 11 & 6 w/ bio mothers in [place] 2 adult children Exam Limitations: Clinical Condition - Ebola screening Have you traveled outside of the country in the last 21 days: No Have you had contact with anyone from an Ebola affected area: No - Review of Systems Constitutional: See HPI EENT: reports: Other (reading glasses , denies dysphagia) Respiratory: reports: No Symptoms reported Cardiac: reports: No Symptoms Reported GI: reports: No Symptoms Reported : reports: No Symptoms Reported Musculoskeletal: reports: Joint Pain (left RTC old injury , left knee s/p fall last night in his apartment when he blacked out from opiate use) Neuro: reports: See HPI Endocrine: reports: No Symptoms Reported Psychiatric: reports: Agitated, Anxious, Depressed, Disorientated Patient History - Patient Medical History Hx Anemia: No Hx Asthma: No Hx Chronic Obstructive Pulmonary Disease (COPD): No Hx Cancer: No Hx Cardiac Disorders: No Hx Congestive Heart Failure: No Hx Hypertension: No Hx Hypercholesterolemia: No Hx Pacemaker: No HX Cerebrovascular Accident: No Hx Seizures: No Hx Dementia: No Hx Diabetes: No Hx Gastrointestinal Disorders: No Hx Liver Disease: No Hx Genitourinary Disorders: No Hx Sexually Transmitted Disorders: No Hx Renal Disease (ESRD): No Hx Thyroid Disease: No Hx Human Immunodeficiency Virus (HIV): No Hx Hepatitis C: No Hx Depression: Yes Hx Suicide Attempt: Yes (41 years old cut right wrist and over dose) Hx Bipolar Disorder: No Hx Schizophrenia: No - Patient Surgical History Past Surgical History: No Hx Neurologic Surgery: No Hx Cataract Extraction: No Hx Cardiac Surgery: No Hx Lung Surgery: No Hx Breast Surgery: No Hx Breast Biopsy: No Hx Abdominal Surgery: No Hx Appendectomy: No Hx Cholecystectomy: No Hx Genitourinary Surgery: No Hx Section: No Hx Orthopedic Surgery: No Anesthesia Reaction: No - PPD History Date: 01/28/17 - Smoking Cessation Smoking history: Current every day smoker Have you smoked in the past 12 months: Yes Aproximately how many cigarettes per day: 20 Cigars Per Day: 0 Hx Chewing Tobacco Use: No Initiated information on smoking cessation: No Family Disease History - Family Disease History Family Disease History: Diabetes: Brother, Heart Disease: Father, Mother Admission Physical Exam [facility] - Physical General Appearance: Yes: Disheveled, Moderate Distress, Anxious HEENTM: Yes: EOMI, Hearing grossly Normal, Normocephalic, Normal Voice, Other ( facial erythema, ecchymossis , edema left cheek , infraorbital , forehead left side - pt had XR done @ [facility] , per pt no frx .) Respiratory: Yes: Chest Non-Tender, Lungs Clear, Normal Breath Sounds Neck: Yes: No masses,lesions,Nodules, Trachea in good position Cardiology: Yes: Regular Rhythm, Regular Rate, S1, S2 Abdominal: Yes: Non Tender, Soft Back: Yes: Normal Inspection Musculoskeletal: Yes: full range of Motion, Gait Steady Extremities: Yes: Non-Tender Neurological: Yes: Motor Strength 5/5, Depressed Affect Integumentary: Yes: Normal Color, Warm, Track Kate ([facility] dorsum of hands w/ induration , antecubital L > R , heplock from hospital w/ dressing .) - Diagnostic (1) Cannabis dependence Current Visit: Yes Status: Chronic (2) Nicotine dependence Current Visit: Yes Status: Chronic Qualifiers: Nicotine product type: cigarettes (3) Opioid dependence with withdrawal Current Visit: Yes Status: Acute (4) Cocaine abuse, uncomplicated Current Visit: Yes Status: Chronic S Breath Alcohol Content Breath Alcohol Content: 0 Inpatient Rehab Admission - Rehab Decision to Admit Inpatient rehab admission?: No
[2018-12-29] MEDS ORDERED: MENTHOL/PHENOL 1 EACH UD MM PRN (11:57)
[2018-12-29] MEDS ORDERED: MAGNESIUM HYDROX 2400MG/30ML ORAL SUSPENSION 30 ML CUP PO PRN (11:57)
[2018-12-29] MEDS ORDERED: ACETAMINOPHEN 325 MG TABLET (FP) PO PRN ×2 (11:57)
[2018-12-29] MEDS ORDERED: IBUPROFEN 400 MG TABLET (FP) PO PRN (11:57)
[2018-12-29] MEDS ORDERED: MAG HYDROX/AL HYDROX/SIMETH 30 ML UNIT-DOSE CUP PO PRN (11:57)
[2018-12-29] MEDS ORDERED: MAGNESIUM CITRATE 300 ML BOTTLE PO PRN (11:57)
[2018-12-29] MEDS ORDERED: BISMUTH SUBSALICYLATE 524 MG/30 ML UD PO PRN (11:57)
[2018-12-29] MEDS ORDERED: METHOCARBAMOL 500 MG TABLET PO PRN (11:57)
[2018-12-29] MEDS: hydrOXYzine PAMOATE 25 MG CAPSULE (FP) PO PRN (19:08)
[2018-12-29] MEDS: cloNIDine HCL 0.1 MG TABLET PO PRN (19:08)
[2018-12-29] MEDS: THIAMINE HCL 100 MG TABLET (FP) PO SCH (22:41)
[2018-12-29] MEDS: MELATONIN 5 MG TABLETS PO PRN (22:42)
[2018-12-29] MEDS ORDERED: METHADONE HCL 10 MG TABLET (FOR DETOX USE ONLY) PO ONE (23:00)
[2018-12-30] MEDS ORDERED: METHADONE HCL 10 MG TABLET (FOR DETOX USE ONLY) PO ONE (10:00)
[2018-12-30] MEDS: hydrOXYzine PAMOATE 25 MG CAPSULE (FP) PO PRN ×2 (10:27→19:13)
[2018-12-30] MEDS: cloNIDine HCL 0.1 MG TABLET PO PRN (10:27)
[2018-12-30] MEDS: PRENATAL VITAMINS W/ FOLIC ACID TABLET (FP) PO SCH (10:27)
[2018-12-30 14:54] LABS: HEMATOCRIT 42.4 % (35.4-49); MCH 29.9 pg (25.7-33.7); MEAN CELL VOLUME 90.7 fl (80-96); MEAN PLT VOLUME 10.2 fl (7.5-11.1); PLATELET COUNT 219 K/MM3 (134-434); RBC 4.67 M/mm3 (4.00-5.60); RDW 14.4 % (11.9-15.9); WHITE BLOOD COUNT 5.5 K/mm3 (4.0-10.0)
[2018-12-30 15:03] LABS: ALBUMIN 3.9 g/dl (3.4-5.0); ALK PHOS 126 U/L (45-117); ANION GAP 5 MMOL/L (8-16); BILIRUBIN,TOTAL 0.5 mg/dL (0.2-1); BLOOD UREA NITROGEN 14 mg/dL (7-18); CALCIUM 8.6 mg/dL (8.5-10.1); CHLORIDE 102 mmol/L (98-107); CO2 28 mmol/L (21-32); CREATININE 0.9 mg/dL (0.55-1.3); GLUCOSE,RANDOM 91 mg/dL (74-106); POTASSIUM 4.5 mmol/L (3.5-5.1); SGOT/AST 37 U/L (15-37); SGPT/ALT 26 U/L (13-61); SODIUM 135 mmol/L (136-145); TOT PROT 8.4 g/dl (6.4-8.2)
--- NOTE | 2018-12-30 17:10 | CONSULT ---
[facility] Psychiatric Consult - Data Date of interview: 12/30/18 Admission source: [facility] Identifying data: Readmission to [facility] for this 48 y/o male self- referred for detoxification (heroin, cocaine). Examined at [address] [place] [address]. Patient is single, a father of four, homeless, currently unemployed (takes odd jobs) and supported on food stamps. Substance Abuse History: Patient admits to a long standing history of substance abuse. Has been using heroin since age 27 (1-1.5 bundles daily), cocaine (1 gm IVDU), fentanyl 1.5 gr daily and cannabis (1 joint daily). Smokes one pack of cigarettes on a daily basis. Medical History: Hepatitis C. Psychiatric History: Patient reports a history of one psychiatric hospitalization at [facility] (years ago). Mr Lowery indicates that he is " not sure " about the diagnosis but he " believes that it could have been depression ". Recalls past treatment with a combination of trazodone, seroquel and citalopram. " I stopped taking those things a long time ago ". Patient states that he has not taken these medications for " at least a couple of years ". No contact with psychiatrists or OPD care settings. History of suicide attempts via overdose with drugs and self-mutilation (cutting). Physical/Sexual Abuse/Trauma History: Patient denies. Additional Comment: Toxicology screen not available. Mental Status Exam - Mental Status Exam Alert and Oriented to: Time, Place, Person Cognitive Function: Good Patient Appearance: Unkempt, Disheveled (tattoo on right arm) Mood: Nervous, Withdrawn Affect: Mood Congruent Patient Behavior: Fatigued, Cooperative Speech Pattern: Clear, Appropriate Voice Loudness: Normal Thought Process: Goal Oriented Thought Disorder: Not Present Hallucinations: Denies Suicidal Ideation: Denies Homicidal Ideation: Denies Insight/Judgement: Poor Sleep: Poorly, Difficulty falling asleep Appetite: Good Muscle strength/Tone: Normal Gait/Station: Normal Psychiatric Findings - Problem List ([place] 1, 2,3) (1) Opioid dependence with withdrawal Current Visit: Yes Status: Acute (2) Cannabis dependence Current Visit: Yes Status: Chronic (3) Cocaine abuse, uncomplicated Current Visit: Yes Status: Chronic (4) Nicotine dependence Current Visit: Yes Status: Chronic Qualifiers: Nicotine product type: cigarettes (5) Drug-induced mood disorder Current Visit: Yes Status: Chronic - Initial Treatment Plan Initial Treatment Plan: Psychoeducation. Sleep hygiene. Detoxification. AA/NA meetings. Groups. Support. Trazodone 50 mg po hs (patient's request). Mr Lowery is made aware of the risk of priapism. " I never had any problem with trazodone ". Consent (verbal) given to MD. Denise.
--- NOTE | 2018-12-30 17:35 | PN ---
S COWS - Scale Resting Pulse: 0= NE 80 or Below Sweatin= Chills/Flushing Restless Observation: 1= Difficult to Sit Still Pupil Size: 0= Normal to Room Light Bone or Joint Aches: 0= None Runny Nose/ Eye Tearin= Nasal Congestion GI Upset > 30mins: 0= None Tremor Observation of Outstretched Hands: 2= Slight Tremor Visible Yawning Observation: 1= 1-2x During Session Anxiety or Irritability: 1=Feels Anxious/Irritable Goose Flesh Skin: 0=Smooth Skin COWS Score: 7 BHS Progress Note (SOAP) Subjective: nasal congestion Tremors Objective: 12/30/18 17:34 A & Ox 3 No acute distress noted Laboratory Last Values WBC 5.5 K/mm3 (4.0-10.0) 12/30/18 10:15 RBC 4.67 M/mm3 (4.00-5.60) 12/30/18 10:15 Hgb 14.0 GM/dL (11.7-16.9) 12/30/18 10:15 Hct 42.4 % (35.4-49) 12/30/18 10:15 MCV 90.7 fl (80-96) 12/30/18 10:15 MCH 29.9 pg (25.7-33.7) 12/30/18 10:15 MCHC 33.0 g/dl (32.0-35.9) 12/30/18 10:15 RDW 14.4 % (11.9-15.9) 12/30/18 10:15 Plt Count 219 K/MM3 (134-434) 12/30/18 10:15 MPV 10.2 fl (7.5-11.1) 12/30/18 10:15 Sodium 135 mmol/L (136-145) L 12/30/18 10:15 Potassium 4.5 mmol/L (3.5-5.1) 12/30/18 10:15 Chloride 102 mmol/L (98-107) 12/30/18 10:15 Carbon Dioxide 28 mmol/L (21-32) 12/30/18 10:15 Anion Gap 5 MMOL/L (8-16) L 12/30/18 10:15 BUN 14 mg/dL (7-18) 12/30/18 10:15 Creatinine 0.9 mg/dL (0.55-1.3) 12/30/18 10:15 Creat Clearance w eGFR 90.06 (>60) 12/30/18 10:15 Random Glucose 91 mg/dL (74-106) 12/30/18 10:15 Calcium 8.6 mg/dL (8.5-10.1) 12/30/18 10:15 Total Bilirubin 0.5 mg/dL (0.2-1) 12/30/18 10:15 AST 37 U/L (15-37) 12/30/18 10:15 ALT 26 U/L (13-61) 12/30/18 10:15 Alkaline Phosphatase 126 U/L (45-117) H 12/30/18 10:15 Total Protein 8.4 g/dl (6.4-8.2) H 12/30/18 10:15 Albumin 3.9 g/dl (3.4-5.0) 12/30/18 10:15 RPR Titer Nonreactive (NONREACTIVE) 12/30/18 05:35 HIV 1&2 Antibody Screen Negative 12/30/18 05:35 HIV P24 Antigen Negative 12/30/18 05:35 Vital Signs Temperature 98.1 F 12/30/18 14:02 Pulse Rate 67 12/30/18 14:02 Respiratory Rate 18 12/30/18 14:02 Blood Pressure 120/69 12/30/18 14:02 O2 Sat by Pulse Oximetry (%) Assessment: 12/30/18 17:35 withdrawal sx Plan: continue detox
[2018-12-30] MEDS: traZODone HCL 50 MG TABLET (FP) PO SCH (23:22)
[2018-12-30] MEDS: THIAMINE HCL 100 MG TABLET (FP) PO SCH (23:22)
[2018-12-31] MEDS: cloNIDine HCL 0.1 MG TABLET PO PRN ×3 (01:00→16:57)
[2018-12-31] MEDS ORDERED: METHADONE HCL 10 MG TABLET (FOR DETOX USE ONLY) PO ONE (10:00)
[2018-12-31] MEDS: PRENATAL VITAMINS W/ FOLIC ACID TABLET (FP) PO SCH (10:16)
[2018-12-31] MEDS: hydrOXYzine PAMOATE 25 MG CAPSULE (FP) PO PRN ×2 (12:15→18:20)
--- NOTE | 2018-12-31 14:11 | PN ---
BHS COWS - Scale Resting Pulse: 0= [place] 80 or Below Sweatin= Chills/Flushing Restless Observation: 1= Difficult to Sit Still Pupil Size: 0= Normal to Room Light Bone or Joint Aches: 1= Mild Discomfort Runny Nose/ Eye Tearin= None GI Upset > 30mins: 0= None Tremor Observation of Outstretched Hands: 0= None Yawning Observation: 0= None Anxiety or Irritability: 0= None Goose Flesh Skin: 0=Smooth Skin COWS Score: 3 BHS Progress Note (SOAP) Subjective: feeling ok today social wtih peers in day room Objective: 12/31/18 14:09 Vital Signs Temperature 96.9 F L 12/31/18 13:10 Pulse Rate 71 12/31/18 13:10 Respiratory Rate 18 12/31/18 13:10 Blood Pressure 107/70 12/31/18 13:10 O2 Sat by Pulse Oximetry (%) Laboratory Last Values WBC 5.5 K/mm3 (4.0-10.0) 12/30/18 10:15 RBC 4.67 M/mm3 (4.00-5.60) 12/30/18 10:15 Hgb 14.0 GM/dL (11.7-16.9) 12/30/18 10:15 Hct 42.4 % (35.4-49) 12/30/18 10:15 MCV 90.7 fl (80-96) 12/30/18 10:15 MCH 29.9 pg (25.7-33.7) 12/30/18 10:15 MCHC 33.0 g/dl (32.0-35.9) 12/30/18 10:15 RDW 14.4 % (11.9-15.9) 12/30/18 10:15 Plt Count 219 K/MM3 (134-434) 12/30/18 10:15 MPV 10.2 fl (7.5-11.1) 12/30/18 10:15 Sodium 135 mmol/L (136-145) L 12/30/18 10:15 Potassium 4.5 mmol/L (3.5-5.1) 12/30/18 10:15 Chloride 102 mmol/L (98-107) 12/30/18 10:15 Carbon Dioxide 28 mmol/L (21-32) 12/30/18 10:15 Anion Gap 5 MMOL/L (8-16) L 12/30/18 10:15 BUN 14 mg/dL (7-18) 12/30/18 10:15 Creatinine 0.9 mg/dL (0.55-1.3) 12/30/18 10:15 Creat Clearance w eGFR 90.06 (>60) 12/30/18 10:15 Random Glucose 91 mg/dL (74-106) 12/30/18 10:15 Calcium 8.6 mg/dL (8.5-10.1) 12/30/18 10:15 Total Bilirubin 0.5 mg/dL (0.2-1) 12/30/18 10:15 AST 37 U/L (15-37) 12/30/18 10:15 ALT 26 U/L (13-61) 12/30/18 10:15 Alkaline Phosphatase 126 U/L (45-117) H 12/30/18 10:15 Total Protein 8.4 g/dl (6.4-8.2) H 12/30/18 10:15 Albumin 3.9 g/dl (3.4-5.0) 12/30/18 10:15 RPR Titer Nonreactive (NONREACTIVE) 12/30/18 05:35 HIV 1&2 Antibody Screen Negative 12/30/18 05:35 HIV P24 Antigen Negative 12/30/18 05:35 lab noted Assessment: 12/31/18 14:11 withdrawal sx Plan: continue detox
[2018-12-31] MEDS: MELATONIN 5 MG TABLETS PO PRN (22:12)
[2018-12-31] MEDS: traZODone HCL 50 MG TABLET (FP) PO SCH (22:12)
[2018-12-31] MEDS: THIAMINE HCL 100 MG TABLET (FP) PO SCH (22:12)
[2019-01-01 09:09] VITALS: BP 107/68; PULSE 67; TEMP 97.7
[2019-01-01] MEDS ORDERED: METHADONE HCL 10 MG TABLET (FOR DETOX USE ONLY) PO ONE (10:00)
[2019-01-01] MEDS: hydrOXYzine PAMOATE 25 MG CAPSULE (FP) PO PRN (10:10)
[2019-01-01] MEDS: PRENATAL VITAMINS W/ FOLIC ACID TABLET (FP) PO SCH (10:10)
--- NOTE | 2019-01-01 11:22 | EKG ---
Test Reason : Blood Pressure : / mmHG Vent. Rate : 067 BPM Atrial Rate : 067 BPM P-R Int : 144 ms QRS Dur : 114 ms QT Int : 450 ms P-R-T Axes : 000 012 042 degrees QTc Int : 475 ms NORMAL SINUS RHYTHM NORMAL ECG WHEN COMPARED WITH ECG OF 26-JAN-2017 18:06, NO SIGNIFICANT CHANGE WAS FOUND Confirmed by DESIRE LOPEZ MD ([id number]) on 01/01/2019 11:21:48 AM Referred By: Confirmed By:DESIRE LOPEZ MD
--- NOTE | 2019-01-01 17:51 | PN ---
BHS Progress Note (SOAP) Subjective: Body Aches, Anxious. Objective: PATIENT A & O X 3, OBSERVED AMBULATING ON UNIT. IN NO ACUTE DISTRESS. 01/01/19 17:50 Vital Signs Temperature 97.7 F 01/01/19 09:08 Pulse Rate 67 01/01/19 09:08 Respiratory Rate 18 01/01/19 09:08 Blood Pressure 107/68 01/01/19 09:08 O2 Sat by Pulse Oximetry (%) Laboratory Tests 12/30/18 12/30/18 12/30/18 05:35 05:35 10:15 WBC 5.5 RBC 4.67 Hgb 14.0 Hct 42.4 MCV 90.7 MCH 29.9 MCHC 33.0 RDW 14.4 Plt Count 219 MPV 10.2 Sodium Potassium Chloride Carbon Dioxide Anion Gap BUN Creatinine Creat Clearance w eGFR Random Glucose Calcium Total Bilirubin AST ALT Alkaline Phosphatase Total Protein Albumin RPR Titer Nonreactive HIV 1&2 Antibody Screen Negative HIV P24 Antigen Negative 12/30/18 10:15 WBC RBC Hgb Hct MCV MCH MCHC RDW Plt Count MPV Sodium 135 L Potassium 4.5 Chloride 102 Carbon Dioxide 28 Anion Gap 5 L BUN 14 Creatinine 0.9 Creat Clearance w eGFR 90.06 Random Glucose 91 Calcium 8.6 Total Bilirubin 0.5 AST 37 ALT 26 Alkaline Phosphatase 126 H Total Protein 8.4 H Albumin 3.9 RPR Titer HIV 1&2 Antibody Screen HIV P24 Antigen LABS NOTED. Assessment: 01/01/19 17:50 WITHDRAWAL SYMPTOMS. Plan: CONTINUE DETOX.
--- NOTE | 2019-01-01 17:54 | DS ---
[facility] Detox Discharge Summary Admission Date: 12/29/18 Discharge Date: 01/01/19 - History Present History: Cannabis Dependence, Cocaine Dependence, Opioid Dependence Additional Comments: DESPITE EFFORTS BY REMOTE BROADCAST ENGINEER AND BY NURSING AND COUNSELING STAFF TO ADDRESS PATIENT'S NEEDS, AND CONCERNS, PATIENT REPORTS THAT "HE DOES NOT FEEL THAT THIS PLACE IS RIGHT FOR HIM" AND THAT HE DOES NOT WISH TO REMAIN TO COMPLETE DETOX REGIMEN. RISKS OF LEAVING DETOX UNIT AGAINST MEDICAL ADVICE AND PRIOR TO COMPLETION OF DETOX REGIMEN EXPLAINED TO PATIENT. PATIENT ADVISED TO GO IMMEDIATELY TO NEAREST ER SHOULD ANY INTOLERABLE WITHDRAWAL / DETOX SYMPTOMS DEVELOP AT ANY TIME. PATIENT VERBALIZED UNDERSTANDING OF ALL INFORMATION / RECOMMENDATIONS PRESENTED TO HIM PRIOR TO DEPARTURE FROM DETOX UNIT. PATIENT LEFT DETOX UNIT IN STABLE MEDICAL CONDITION. Pertinent Past History: Hep C, Depression, Nicotine Dependence. - Physical Exam Results Vital Signs: Vital Signs Temperature 97.7 F 01/01/19 09:08 Pulse Rate 67 01/01/19 09:08 Respiratory Rate 18 01/01/19 09:08 Blood Pressure 107/68 01/01/19 09:08 O2 Sat by Pulse Oximetry (%) Pertinent Admission Physical Exam Findings: WITHDRAWAL SYMPTOMS. Laboratory Tests 12/30/18 12/30/18 12/30/18 05:35 05:35 10:15 WBC 5.5 RBC 4.67 Hgb 14.0 Hct 42.4 MCV 90.7 MCH 29.9 MCHC 33.0 RDW 14.4 Plt Count 219 MPV 10.2 Sodium Potassium Chloride Carbon Dioxide Anion Gap BUN Creatinine Creat Clearance w eGFR Random Glucose Calcium Total Bilirubin AST ALT Alkaline Phosphatase Total Protein Albumin RPR Titer Nonreactive HIV 1&2 Antibody Screen Negative HIV P24 Antigen Negative 12/30/18 10:15 WBC RBC Hgb Hct MCV MCH MCHC RDW Plt Count MPV Sodium 135 L Potassium 4.5 Chloride 102 Carbon Dioxide 28 Anion Gap 5 L BUN 14 Creatinine 0.9 Creat Clearance w eGFR 90.06 Random Glucose 91 Calcium 8.6 Total Bilirubin 0.5 AST 37 ALT 26 Alkaline Phosphatase 126 H Total Protein 8.4 H Albumin 3.9 RPR Titer HIV 1&2 Antibody Screen HIV P24 Antigen LABS NOTED. - Treatment Hospital Course: Detox Protocol Followed, Detoxed Safely - Medication Discharge Medications: Ambulatory Orders Citalopram Hydrobromide [Celexa -] 20 mg PO DAILY 01/26/17 Quetiapine Fumarate [Seroquel -] 100 mg PO HS 01/26/17 traZODone HCL [Trazodone HCl] 100 mg PO HS 01/26/17 Quetiapine Fumarate [Seroquel] 25 mg PO TID 12/29/18 - Diagnosis (1) Opioid dependence with withdrawal Status: Acute (2) Nicotine dependence Status: Chronic Qualifiers: Nicotine product type: cigarettes Substance use status: uncomplicated Qualified Code(s): F17.210 - Nicotine dependence, cigarettes, uncomplicated (3) Cocaine abuse, uncomplicated Status: Chronic (4) Drug-induced mood disorder Status: Chronic (5) Cannabis dependence Status: Chronic - AMA Did Patient Leave Against Medical Advice: Yes (PATIENT DID NOT WISH TO REMAIN TO COMPLETE DETOX REGIMEN.)
[2019-01-02] MEDS ORDERED: METHADONE HCL 5 MG TABLET (FOR DETOX USE ONLY) PO ONE (06:00)
== END 2019-01-01 12:15 | disposition left against medical advice (07) | DRG 770 ==
LOC: YASAS 10:33 → Y3N 13:59
PROVIDERS: ADMIT Surgery; ATTEND Surgery
PROC: HZ2ZZZZ Detoxification Services for Substance Abuse Treatment (ICD-10-PCS; principal; 2018-12-29)
DX: F11.23 Opioid dependence with withdrawal (principal); F12.20 Cannabis dependence, uncomplicated; F14.10 Cocaine abuse, uncomplicated; F17.210 Nicotine dependence, cigarettes, uncomplicated; F19.24 Other psychoactive substance dependence with psychoactive substance-induced mood disorder; B18.2 Chronic viral hepatitis C; Z91.5 Personal history of self-harm
CPT/HCPCS: 36415; 80053; 85027; 86593; 87389; 93005; 93010; J0735